=== PATIENT | male | born 1965 | race Hispanic/Latino ===

== ENCOUNTER 2018-03-29 15:29 | Inpatient (IN) | payer OTHER ==
[~2018-03-29] VITALS: Ht 182.9 cm; Wt 99.8 kg
[2018-03-29] MEDS ORDERED: SODIUM CHLORIDE 0.9% 1000ML 1,000 ML IV STA (15:51)
[2018-03-29] MEDS ORDERED: ONDANSETRON HCL 4 MG ORAL DISINTEGRATING TAB PO ONE ×2 (16:00→20:45)
[2018-03-29] MEDS ORDERED: SODIUM CHLORIDE 0.9% 1000ML 1,000 ML ONE (16:03)
[2018-03-29 16:04] LABS: BASOPHILS # (AUTO) 0.1 (0.0-0.1); BASOPHILS % 0.5 % (0.0-1.0); EOSINOPHILS # (AUTO) 0.2 (0.0-0.4); EOSINOPHILS % 2.1 % (0.0-6.0); HEMATOCRIT 49.1 % (38.2-49.6); HEMOGLOBIN 17.6 g/dL (14.0-18.0); LYMPHOCYTES # (AUTO) 1.1 (1.0-3.2); MEAN CORPUSCULAR HGB CONC 35.8 g/dL (31-35); MEAN CORPUSCULAR VOLUME 91.9 fL (81-99); MONOCYTES # (AUTO) 0.8 (0.2-0.8); MONOCYTES % 8.3 % (4.4-11.3); NEUTROPHILS # (AUTO) 7.4 (2.1-6.9); NEUTROPHILS % 77.6 % (38.7-80.0); PLATELET COUNT 226 x10e3/uL (140-360); RED BLOOD COUNT 5.34 x10e6/uL (4.3-5.7); RED CELL DISTRIBUTION WIDTH 12.7 % (11.7-14.4)
[2018-03-29] MEDS ORDERED: MORPHINE SULFATE 2 MG/ML SYR IV STA (16:10)
[2018-03-29] MEDS ORDERED: MORPHINE SULFATE 4 MG/ML SYR IV ONE (16:15)
[2018-03-29 16:20] LABS: ALANINE AMINOTRANSFERASE 23 IU/L (0-55); ALBUMIN 3.7 g/dL (3.5-5.0); ALBUMIN/GLOBULIN RATIO 0.9 (0.8-2.0); ALKALINE PHOSPHATASE 103 IU/L (40-150); ANION GAP 14.5 mmol/L (8-16); BLOOD UREA NITROGEN 7 mg/dL (7-26); BUN/CREATININE RATIO 10 (6-25); CALCIUM 9.5 mg/dL (8.4-10.2); CARBON DIOXIDE 22 mmol/L (22-29); CHLORIDE 108 mmol/L (98-107); CREATININE, SERUM 0.71 mg/dL (0.72-1.25); EST GLOMERULAR FILTRATION RATE > 60 ML/MIN (60-); GLUCOSE 105 mg/dL (74-118); POTASSIUM 3.5 mmol/L (3.5-5.1); SODIUM 141 mmol/L (136-145)
[2018-03-29] MEDS ORDERED: SODIUM CHLORIDE 0.9% 50ML 50 ML ONE (17:34)
[2018-03-29] MEDS ORDERED: IOPAMIDOL 370 MG/ML 200 ML INFUS..BTL INJ ONE (17:34)
[2018-03-29] MEDS ORDERED: MIDAZOLAM HCL 2 MG/2 ML VIAL ONE (17:43)
[2018-03-29] MEDS ORDERED: FENTANYL CITRATE/PF 100MCG/2 ML INJ ONE (17:43)
--- NOTE | 2018-03-29 18:39 | Diagnostic Imaging Report ---
PROCEDURE: CT ABDOMEN AND PELVIS WITH CONTRAST TECHNIQUE: The abdomen and pelvis were scanned utilizing a multidetector helical scanner from the diaphragm to the lesser trochanter after the IV administration of 100 cc of Isovue 370 and the oral administration of 900 mL of water. Coronal and sagittal multiplanar reformations were obtained. COMPARISON: None. INDICATIONS: right lower quad pain FINDINGS: LOWER THORAX: Multiple lung nodules are visualized in both lung bases. For example, subpleural nodule in the left lung base (series 2, image 4) measures 1.1 cm. HEPATOBILIARY: There are multiple indeterminate liver lesions. For example, an ill-defined lesion in segment II of the liver (series 2, image 12) measures 3.4 cm. A more cystic appearing 1.6 cm lesion near the hepatic dome contains surgical clips and may represent a previously treated lesion (series 2, image 12). No biliary ductal dilatation. The gallbladder is absent. SPLEEN: No splenomegaly. PANCREAS: No focal masses or ductal dilatation. ADRENALS: No adrenal nodules. KIDNEYS/URETERS: No hydronephrosis, stones, or solid mass lesions. PELVIC ORGANS/BLADDER: Unremarkable. PERITONEUM / RETROPERITONEUM: No free air or fluid. LYMPH NODES: No lymphadenopathy. VESSELS: The CATHERINE has been surgically ligated. GI TRACT: There are postsurgical changes consistent with prior low anterior resection for colorectal cancer. There is diffuse dilatation of the colon and distal small bowel. The transition point is at the level of the rectal anastomosis. The appendix is normal. BONES AND SOFT TISSUES: Unremarkable. IMPRESSION: 1. Postsurgical changes from low anterior resection for colorectal cancer. 2. There is a large bowel obstruction with transition point at the rectal anastomosis. The findings are highly suspicious for recurrent disease at the anastomosis. 3. Bilateral lung and liver lesions are suspicious for metastatic disease. Dictated by: Chester Holt M.D. on 03/29/2018 at 18:40 Electronically approved by: Chester Holt M.D. on 03/29/2018 at 18:40
[2018-03-29] MEDS ORDERED: SERTRALINE HCL50 MG PO (18:51)
[2018-03-29] MEDS ORDERED: GEMFIBROZIL600 MG PO (18:51)
[2018-03-29] MEDS ORDERED: FISH OIL 1,0001 EAC2 PO (18:51)
[2018-03-29] MEDS ORDERED: VITAMIN D1000 UNI1 PO (18:51)
[2018-03-29] MEDS ORDERED: LOSARTAN POTASS25 MG PO (18:51)
[2018-03-29 18:56] LABS: BILIRUBIN,URINE NEGATIVE (NEGATIVE); CLARITY,URINE SL CLOUDY (CLEAR); COLOR,URINE YELLOW (YELLOW); KETONES,URINE 1+ (NEGATIVE); LEUKOCYTE ESTERASE ,URINE NEGATIVE (NEGATIVE); NITRITE,URINE NEGATIVE (NEGATIVE); PROTEIN,URINE DIPSTICK NEGATIVE (NEGATIVE); URINE UROBILINOGEN 0.2 mg/dL (0.2 - 1)
[2018-03-29] MEDS ORDERED: BENZOCAINE/TETRACAINE/BUTAMBEN AERO SPRAY 56 GM CAN TOP ONE (20:30)
[2018-03-29] MEDS ORDERED: HYDROMORPHONE 1MG/1ML INJ IV ONE (20:39)
[2018-03-29] MEDS ORDERED: LIDOCAINE VISC 2% SOLN 15 ML UDC PO ONE (20:45)
[2018-03-29] MEDS: SODIUM CHLORIDE 0.9% 1000ML 1,000 ML IV SCH ×2 (21:25→23:54)
[2018-03-29] MEDS ORDERED: PROMETHAZINE HCL (IM) 25 MG/ML VIAL IV PRN (21:30)
[2018-03-29] MEDS ORDERED: ONDANSETRON HCL 4 MG ORAL DISINTEGRATING TAB PO PRN (21:30)
[2018-03-29] MEDS ORDERED: PROMETHAZINE 12.5MG/ NACL 0.9% 50 ML IV PRN (21:45)
--- OUTSIDE RECORDS SUMMARY | 2018-03-29 22:17 | XMS REPORT ---
Author Author [facility] Address Unknown Phone Unavailable Care Team Providers Care Shift Supervisor Melting Name Role Phone KALIE JOHNSON Unavailable Unavailable Problems This patient has no known problems. Allergies, Adverse Reactions, Alerts This patient has no known allergies or adverse reactions. Medications This patient has no known medications. Results Test Description Test Time Test Comments Text Results Atomic Results Result Comments CT ABDOMEN/PELVIS W [place] [address] Patient Name: FRANCY ACEVEDO MR #: [id number] : 1965 Age/Sex: 53/M Req #: [id number] Adm Physician: Ordered by: JANICE GAFFNEY PHOTOGRAPHIC LABORATORY SUPERVISOR Report #: [id number] Location: ER Room/Bed: Procedure: [id number] CT/CT ABDOMEN/PELVIS W Exam Date: 03/29/18 Exam Time: 1730 REPORT STATUS: Signed PROCEDURE: CT ABDOMEN AND PELVIS WITH CONTRAST TECHNIQUE: The abdomen and pelvis were scanned utilizing a multidetector helical scanner from the diaphragm to the lesser trochanter after the IV administration of 100 cc of Isovue 370 and the oral administration of 900 mL of water. Coronal and sagittal multiplanar reformations were obtained. COMPARISON: None. INDICATIONS: right lower quad pain FINDINGS: LOWER THORAX: Multiple lung nodules are visualized in both lung bases. For example, subpleural nodule in the left lung base (series 2, image 4) measures 1.1 cm. HEPATOBILIARY: There are multiple indeterminate liver lesions. For example, an ill-defined lesion in segment II of the liver (series 2, image 12) measures 3.4 cm. A more cystic appearing 1.6 cm lesion near the hepatic dome contains surgical clips and may represent a previously treated lesion ( series 2, image 12). No biliary ductal dilatation. The gallbladder is absent. SPLEEN: No splenomegaly. PANCREAS: No focal masses or ductal dilatation. ADRENALS: No adrenal nodules. KIDNEYS/URETERS: No hydronephrosis, stones, or solid mass lesions. PELVIC ORGANS/BLADDER: Unremarkable. PERITONEUM / RETROPERITONEUM: No free air or fluid. LYMPH NODES: No lymphadenopathy. VESSELS: The CATHERINE has been surgically ligated. GI TRACT: There are postsurgical changes consistent with prior low anterior resection for colorectal cancer. There is diffuse dilatation of the colon and distal small bowel. The transition point is at the level of the rectal anastomosis. The appendix is normal. BONES AND SOFT TISSUES: Unremarkable. IMPRESSION: 1. Postsurgical changes from low anterior resection for colorectal cancer. 2. There is a large bowel obstruction with transition point at the rectal anastomosis. The findings are highly suspicious for recurrent disease at the anastomosis. 3. Bilateral lung and liver lesions are suspicious for metastatic disease. Dictated by: Fly Holt M.D. on 03/29/2018 at 18:40 Electronically approved by: Fly Holt M.D. on 03/29/2018 at 18:40 Dictated By: FLY HOLT MD 184 Transcribed By: SHAYE on 03/29/18 184 COPY TO: JANICE GAFFNEY NP
[2018-03-30] VITALS (9 sets, daily range): BP systolic 122–144; BP diastolic 82–90
[2018-03-30 06:26] LABS: BASOPHILS # (AUTO) 0.1 (0.0-0.1); BASOPHILS % 0.4 % (0.0-1.0); EOSINOPHILS % 0.3 % (0.0-6.0); HEMATOCRIT 50.8 % (38.2-49.6); LYMPHOCYTES # (AUTO) 0.7 (1.0-3.2); LYMPHOCYTES % 6.3 % (18.0-39.1); MEAN CORPUSCULAR HEMOGLOBIN 32.7 pg (28-32); MEAN CORPUSCULAR HGB CONC 35.4 g/dL (31-35); MEAN CORPUSCULAR VOLUME 92.4 fL (81-99); MONOCYTES # (AUTO) 0.7 (0.2-0.8); MONOCYTES % 6.5 % (4.4-11.3); NEUTROPHILS # (AUTO) 9.8 (2.1-6.9); NEUTROPHILS % 86.1 % (38.7-80.0); PLATELET COUNT 241 x10e3/uL (140-360); RED CELL DISTRIBUTION WIDTH 12.7 % (11.7-14.4)
[2018-03-30 06:42] LABS: ALANINE AMINOTRANSFERASE 25 IU/L (0-55); ALBUMIN 3.7 g/dL (3.5-5.0); ALBUMIN/GLOBULIN RATIO 0.9 (0.8-2.0); ALKALINE PHOSPHATASE 102 IU/L (40-150); ANION GAP 16.6 mmol/L (8-16); BLOOD UREA NITROGEN 13 mg/dL (7-26); BUN/CREATININE RATIO 16 (6-25); CALCIUM 9.4 mg/dL (8.4-10.2); CARBON DIOXIDE 20 mmol/L (22-29); CHLORIDE 109 mmol/L (98-107); CREATININE, SERUM 0.83 mg/dL (0.72-1.25); EST GLOMERULAR FILTRATION RATE > 60 ML/MIN (60-); GLUCOSE 127 mg/dL (74-118); POTASSIUM 3.6 mmol/L (3.5-5.1); SODIUM 142 mmol/L (136-145)
[2018-03-30] MEDS ORDERED: METOPROLOL TARTRATE INJ 1 MG/ML VIAL IV PRN (08:00)
--- NOTE | 2018-03-30 08:51 | History and Physical ---
PRIMARY CARE PHYSICIAN: Physician at the [facility] in [place], [place]. CHIEF COMPLAINT: Abdominal pain and diarrhea. HISTORY OF PRESENT ILLNESS: This is a 53-year-old man with a history of colon cancer, stage 4, diagnosed in 2012, now developing sharp abdominal pain and loose stools for the past 10 days, now developing diarrhea over the past day, therefore he came to the hospital. Here, he was found to have large-bowel obstruction and multiple nodules in the lungs and liver. He is admitted for further evaluation and management. PAST MEDICAL HISTORY: Colon cancer, stage 4, diagnosed in 2012; hypertension; hypertriglyceridemia. PAST SURGICAL HISTORY: Liver tumor resection x2, cholecystectomy. ALLERGIES: PER ELECTRONIC MEDICAL RECORD. FAMILY/SOCIAL HISTORY: Patient is . He has 2 children. Occasional alcohol. No cigarettes or illicits. MEDICATIONS: Per electronic medical record. REVIEW OF SYSTEMS: Denies any dizziness, chest pain. PHYSICAL EXAMINATION: VITAL SIGNS: Reviewed. GENERAL APPEARANCE: Tired-appearing man resting in bed. HEENT: Anicteric. He has NG tube in place. CARDIOVASCULAR: Normal S1 and S2. LUNGS: Moderate breath sounds. ABDOMEN: Soft, nontender. He has scar in the abdominal wall. EXTREMITIES: No edema or calf tenderness. NEUROLOGICAL: Alert and oriented x3. Moving all extremities. SKIN: Dry. PSYCHIATRIC: Flat affect. LABS: Reviewed. MEDICATIONS: Reviewed. ASSESSMENT AND PLAN: A 53-year-old man. 1. Large-bowel obstruction. Continue nasogastric tube. Follow up with surgical recommendations. 2. Probable bacterial diarrhea. Will treat with Levaquin and Flagyl. We will obtain a stool for Clostridium difficile. 3. Metastatic colon cancer, stage 4 with liver lesion and lung nodules bilaterally. He needs to follow up with his oncologist in [place], [place] at the [facility]. 4. Overweight state. Body mass index 29.8. His glucose is 105. Now, glucose increased to 127. Will obtain hemoglobin A1c. 5. Prophylaxis. Will use Lovenox and pantoprazole. 6. Disposition. Follow up surgical recommendations. Start intravenous antibiotics. Job#: [id number]
[2018-03-30] MEDS: METRONIDAZOLE 500MG/NS 100ML 100 ML IV SCH ×2 (09:34→16:48)
[2018-03-30] MEDS: PANTOPRAZOLE 40 MG 10ML VIAL IV SCH (09:34)
[2018-03-30] MEDS: SODIUM CHLORIDE 0.9% 1000ML 1,000 ML IV SCH ×2 (09:34→13:27)
[2018-03-30] MEDS: LEVOFLOXACIN 750MG/D5W 150ML 150 ML IV SCH (10:59)
[2018-03-30] MEDS: ENOXAPARIN SOD INJ 40 MG/0.4 ML SYR SC SCH (16:49)
--- NOTE | 2018-03-30 19:09 | Consultation ---
DATE OF CONSULTATION: March 30, 2018 SURGICAL CONSULT CHIEF COMPLAINT: Is abdominal distention and diarrhea. HISTORY OF PRESENT ILLNESS: The patient is a 53-year-old male from [place] with a history of stage IV colon cancer diagnosed in 2012 with progressive abdominal distention and pain for the last 2 weeks. He has intermittent diarrhea and constipation. He denies fever nor chills. PAST MEDICAL HISTORY: Positive for stage IV colon cancer with hypertension and hyperlipidemia. SURGICAL HISTORY: Positive for a colon resection in 2013. Liver tumor resection times 2. Cholecystectomy. ALLERGIES: HE HAS NO DRUG ALLERGIES. SOCIAL HABITS: The patient does not smoke, drinks socially. REVIEW OF SYSTEMS: No chest pain or shortness of breath. PHYSICAL EXAMINATION: VITALS: Stable. He is afebrile. GENERAL: He is awake, alert, in mild discomfort. HEENT: Sclerae anicteric. NECK: Supple. LUNGS: Clear. HEART: Regular rate and rhythm. ABDOMEN: Mildly distended with no focal tenderness or mass. EXTREMITIES: Without cyanosis or edema. White cell count is 11, hemoglobin of 18, platelet count 241. Creatinine 0.8. CT of the abdomen showed a large-bowel obstruction with transitional point in the rectal anastomosis, highly suspicious for recurrent tumors. Lung and liver lesions suspicious for metastasis disease. ASSESSMENT: Colonic obstruction most likely secondary to recurrent tumor at the anastomosis. PLAN: Discussed findings which may require diverting colostomy to relieve obstruction. Attendant risks discussed. Thank you for the consultation. Job#: [id number] EV
[2018-03-30] MEDS: MORPHINE SULFATE 2 MG/ML SYR IV PRN (21:25)
[2018-03-31] VITALS (7 sets, daily range): BP systolic 114–140; BP diastolic 79–95
[2018-03-31] MEDS: METRONIDAZOLE 500MG/NS 100ML 100 ML IV SCH ×4 (00:32→23:50)
[2018-03-31] MEDS: SODIUM CHLORIDE 0.9% 1000ML 1,000 ML IV SCH ×3 (07:17→21:27)
[2018-03-31] MEDS: LEVOFLOXACIN 750MG/D5W 150ML 150 ML IV SCH (08:30)
[2018-03-31] MEDS: PANTOPRAZOLE 40 MG 10ML VIAL IV SCH (09:00)
--- NOTE | 2018-03-31 16:44 | Consultation ---
DATE OF CONSULTATION: March 30, 2018 ONCOLOGY CONSULTATION HISTORY OF PRESENT ILLNESS: This is an unfortunate 53-year-old man admitted to [facility] in [place], [place] because of bowel obstruction. Mr. Arita was diagnosed to have colon cancer way back in 2012 and was treated as such at the [facility] in [place], [place]. Patient came to [facility] in [place], [place], Emergency Room because of abdominal pain. He was found to have bowel obstruction and did have radiographic evidence of liver and lung metastases. Patient was admitted to the hospital for supportive care with NG tube suction, NPO, and surgical consultation, which is pending at this time. Patient is nonresponsive, but review of the medical record suggests the patient has a prior history consisting of cholecystectomy as well as liver tumor resections. PAST MEDICAL AND SURGICAL HISTORY: As per history and physical by attending. PHYSICAL EXAMINATION GENERAL: Reveals a middle-aged man who is in no acute distress. VITAL SIGNS: Stable. HEENT: Unremarkable. NECK: Supple. No JVD. CHEST: Lungs clear. HEART: . ABDOMEN: Soft. NEUROLOGICAL: Normal. EXTREMITIES: No cyanosis, clubbing, or edema. ASSESSMENT AND PLAN: Bowel obstruction, most likely due to the metastatic colon cancer until proven otherwise. Surgery consultation is pending at this time. I anticipate the patient most likely has a surgical evaluation with possibly diversion of ileocolostomy. Patient would be a candidate for salvage chemotherapy depending on the treatment plan he had in the past. Thank you very much Dr. Horton for asking me to see Mr. Arita. We will follow him with you. Job#: [id number] ABHILASH
[2018-03-31] MEDS: ENOXAPARIN SOD INJ 40 MG/0.4 ML SYR SC SCH (17:00)
--- NOTE | 2018-03-31 18:49 | Progress Note ---
DATE: March 31, 2018 TIME: 1420 OVERNIGHT: No acute events. REVIEW OF SYSTEMS: The patient denies chest pain or shortness of breath. The patient denies nausea, vomiting, or diarrhea. No dizziness or headache present. PHYSICAL EXAMINATION VITAL SIGNS: T 97, P 69, R 20, BP 130/84, pulse ox 97% on room air. GENERAL APPEARANCE: This is a tired-appearing man resting quietly in bed. HEAD, EYES, EARS, NOSE AND THROAT: Normocephalic. Cheeks flushed. Oral mucosa dry and intact. Positive NGT to right naris to LIWS. CV: S1 and S2 auscultated. LUNGS: Bilateral breath sounds CTA with fair excursion. ABDOMEN: Soft, nontender to light palpation. Not distended. Positive scar noted at bilateral upper quadrants. EXTREMITIES: No edema or calf tenderness. NEUROLOGICAL: Alert and oriented x3. Moves all extremities. SKIN: Dry. PSYCHIATRIC: Flat affect. LABS: Counts with WBC at 11.39, hemoglobin 18, hematocrit 50.8, platelet count 241. Chemistries reviewed. MEDICATIONS 1. Protonix 40 mg IV daily. 2. Levofloxacin q.24 h. IV. 3. Flagyl q.8 h. IV. 4. NS at 125 IV. 5. P.R.N. morphine sulfate 4 mg q.4 h. p.r.n. 6. Lovenox 40 mg daily at 5 p.m. subcutaneous. 7. P.R.N. IV metoprolol. 8. P.R.N. Zofran 4 mg q.6. ASSESSMENT AND PLAN 1. Large-bowel obstruction. NG tube to LIWS. Surgical consult and note reviewed. Pending intervention with GI EGD and sigmoidoscopy this day. 2. Probable bacterial diarrhea. IV Levaquin and Flagyl. Stool C. diff negative. 3. Metastatic colon cancer, stage IV with liver lesion and lung nodules bilaterally per note review. The patient lives in [place], [place], where his PCP and oncologist provide care. He will need to follow up as an outpatient with that service. 4. Overweight state. BMI is 2.8, glucose 105. On admission, hemoglobin A1c was 4.7. Continue to monitor. 5. Prophylaxis: Lovenox and Protonix. 6. Disposition: IV ABX pending GI findings. GI procedure pending this very day as discussed with the patient and medical staff. Surgical note review indicates patient will require diverting colostomy to relieve obstruction. Intervention pending. Dictated by Rustam Mccabe NP. Job#: [id number]
--- NOTE | 2018-03-31 20:39 | Operative Report ---
DATE OF PROCEDURE: March 31, 2018 REFERRING PHYSICIANS: Dr. eDlfino Ware and Dr. Manoj Thomas PROCEDURE PERFORMED: Colonoscopy. INDICATIONS FOR PROCEDURE: Patient with history of stage 4 colon cancer, ? recurrence at the anastomosis per CT scan. MEDICATION: Patient was done under MAC. Please see anesthesiologist note. PROCEDURE IN DETAIL: With the patient in left lateral decubitus position, flexible fiberoptic Olympus pediatric colonoscope was inserted into the rectum with ease, and at approximately 8 cm from the anal verge, the anastomosis was encountered with excessive overgrowth of tissue and some element of edema, and the lumen was totally obstructed. Anastomotic site was traversed with gentle persistent pressure with the scope, which was advanced all the way to the cecum. Prep overall was poor as patient was prepped with enemas only. The scope was then withdrawn slowly. Whatever was visualized in the mucosa overlying the ascending, transverse, descending, and sigmoid grossly appeared to be within normal limits. Biopsies were obtained from the anastomosis. The scope was subsequently withdrawn. Patient tolerated the procedure well. IMPRESSION: 1. Obvious recurrence of cancer at rectal anastomosis with obstruction, biopsies obtained. 2. Poor prep. PLAN: Follow up histology. Continue NG section. Will discuss with Dr. Thomas. Job#: [id number] cc:MD MANOJ CARVALHO MD
[2018-03-31] MEDS: MORPHINE SULFATE 2 MG/ML SYR IV PRN (23:58)
[2018-04-01] VITALS: BP 130/85
[2018-04-01] MEDS: SODIUM CHLORIDE 0.9% 1000ML 1,000 ML IV SCH ×5 (00:52→22:45)
[2018-04-01 04:00] VITALS: BP 120/77
[2018-04-01] MEDS: METRONIDAZOLE 500MG/NS 100ML 100 ML IV SCH ×3 (08:00→23:34)
[2018-04-01 08:22] VITALS: BP 126/85
[2018-04-01] MEDS: LEVOFLOXACIN 750MG/D5W 150ML 150 ML IV SCH (08:30)
[2018-04-01] MEDS: PANTOPRAZOLE 40 MG 10ML VIAL IV SCH (09:00)
[2018-04-01 12:49] VITALS: BP 120/80
--- NOTE | 2018-04-01 13:55 | Progress Note ---
DATE: April 01, 2018 TIME: 12:45 p.m. OVERNIGHT: No acute events. Patient underwent GI evaluation yesterday evening. REVIEW OF SYSTEMS: The patient was found sleeping and had some difficulty arousing status post morphine administration. Nursing staff reports no other complaint besides headache. PHYSICAL EXAMINATION VITAL SIGNS: T 97.5, P 71, respirations 20, BP 120/80, pulse ox 97% on room air. GENERAL: This is a tired-appearing man resting comfortably in bed. HEAD, EYES, EARS, NOSE AND THROAT: Normocephalic. Cheeks flushed. Oral mucosa moist and intact. NG tube at right naris to low intermittent wall suction. CARDIOVASCULAR: S1 and S2 auscultated without clicks, murmurs or rubs. LUNGS: Bilateral breath sounds clear to auscultation with good excursion. ABDOMEN: Soft and nontender to light palpation. Not distended. Scar noted horizontal across bilateral upper quadrants with vertical scar in epigastric region. EXTREMITIES: No edema or calf tenderness. NEUROLOGICAL: Alert and oriented x3. Moves all extremities. Dorsiflexion against force. SKIN: Dry. PSYCHIATRIC: Flat affect when awakened. LABS: WBC, H and H and platelets prior values reviewed. Chemistries reviewed. MEDICATIONS 1. Normal saline at 125 an hour. 2. Protonix 40 mg IV daily. 3. Levaquin q.24 h. IV. 4. Flagyl q.8 h. IV. 5. P.R.N. morphine q.4 h. as needed for pain. 6. Lovenox 40 mg daily at 1700. 7. Metoprolol 5 mg q.4 h. p.r.n. 8. Zofran 4 mg q.6. ASSESSMENT AND PLAN 1. Large-bowel obstruction. NG tube to low intermittent wall suction. Surgical consult and note reviewed today. GI EGD and sigmoidoscopy procedures performed last night. GI and surgery are consulting options. 2. Diarrhea, probably bacterial. IV Levaquin and Flagyl. C. diff negative. 3. Metastatic colon cancer, stage IV with liver lesion and lung nodules bilaterally per chart review. The patient lives in [place], [place], where his PCP and oncologist provide care. He will need to follow up as an outpatient with those services. 4. Overweight state. BMI is 29.8, glucose 105. On admission, hemoglobin A1c was well controlled at 4.7. Continue to monitor. 5. Prophylaxis: Lovenox and Protonix. 6. Disposition: IV antibiotics pending GI and surgical plan. Discussed with nursing staff at bedside. IV medications per nursing for complaint of headache. Continue with multidisciplinary care. Dictated by Rustam Mccabe NP. Job#: [id number]
[2018-04-01] MEDS ORDERED: HYOSCYAMINE SULFATE 0.5 MG/ML AMP ONE (14:27)
[2018-04-01] MEDS ORDERED: PROPOFOL IV EMULSION 10 MG/ML 50 ML VIAL ONE (14:27)
[2018-04-01] MEDS ORDERED: LIDOCAINE HCL 2% LOCAL INJ 5 ML SDV VIAL INJ ONE (14:27)
[2018-04-01 16:19] VITALS: BP 134/87
[2018-04-01] MEDS: ENOXAPARIN SOD INJ 40 MG/0.4 ML SYR SC SCH (16:26)
[2018-04-01 20:00] VITALS: BP 120/78
[2018-04-02] VITALS (7 sets, daily range): BP systolic 116–150; BP diastolic 79–94
[2018-04-02] MEDS: SODIUM CHLORIDE 0.9% 1000ML 1,000 ML IV SCH ×3 (04:52→20:10)
[2018-04-02 06:48] LABS: ANION GAP 12.3 mmol/L (8-16); BLOOD UREA NITROGEN 5 mg/dL (7-26); BUN/CREATININE RATIO 8 (6-25); CARBON DIOXIDE 24 mmol/L (22-29); CHLORIDE 110 mmol/L (98-107); CREATININE, SERUM 0.65 mg/dL (0.72-1.25); EST GLOMERULAR FILTRATION RATE > 60 ML/MIN (60-); GLUCOSE 85 mg/dL (74-118); POTASSIUM 3.3 mmol/L (3.5-5.1); SODIUM 143 mmol/L (136-145)
[2018-04-02] MEDS: METRONIDAZOLE 500MG/NS 100ML 100 ML IV SCH ×2 (08:00→16:00)
[2018-04-02] MEDS: PANTOPRAZOLE 40 MG 10ML VIAL IV SCH (08:11)
--- NOTE | 2018-04-02 08:11 | Progress Note ---
DATE: April 02, 2018 TIME: 7:43 a.m. OVERNIGHT: No events. REVIEW OF SYSTEMS: Denies any dizziness. PHYSICAL EXAMINATION VITAL SIGNS: Reviewed. GENERAL: A tired-appearing man resting in bed. HEENT: Anicteric. CARDIOVASCULAR: Normal S1 and S2. LUNGS: Moderate breath sounds. ABDOMEN: Soft, nontender and nondistended. EXTREMITIES: No edema. SKIN: Dry. PSYCHIATRIC: Flat affect. LABS: Reviewed. MEDICATIONS: Reviewed. ASSESSMENT: A 53-year-old man with: 1. Large bowel obstruction. 2. Peripheral arterial disease. 3. Metastatic colon cancer, stage IV with liver lesion and lung nodules. 4. Overweight state. 5. Hypokalemia. PLAN 1. Hemoglobin A1c 4.7. 2. C. diff testing negative. 3. Continue Flagyl and Levaquin. 4. Stent placement versus balloon dilatation for the stricture at the anastomosis site. Follow up GI recommendations. 5. Continue blood pressure control. 6. Replace potassium. Job#: [id number] SYED
[2018-04-02] MEDS ORDERED: POTASSIUM CHLORIDE 20MEQ/100ML 100 ML IV ONE (08:15)
[2018-04-02] MEDS ORDERED: BISMUTH SUBSALICYLATE 262 MG/15 ML 8OZ BTL PO PRN (10:00)
[2018-04-02] MEDS: LEVOFLOXACIN 750MG/D5W 150ML 150 ML IV SCH (11:04)
[2018-04-02] MEDS: SUCRALFATE 1 GM/10 ML SUSP NG SCH ×3 (13:00→20:10)
[2018-04-02] MEDS ORDERED: RISPERIDONE0.5 MG PO (14:39)
[2018-04-02] MEDS ORDERED: ULTRAM50 MG PO (14:39)
[2018-04-02] MEDS ORDERED: TAMSULOSIN HCL0.4 MG PO (14:39)
[2018-04-02] MEDS ORDERED: diclofenac PO (14:39)
--- NOTE | 2018-04-02 16:15 | Operative Report ---
DATE OF PROCEDURE: April 02, 2018 REFERRING PHYSICIAN: Dr. Jarvis Kiser. PROCEDURE PERFORMED: Flexible sigmoidoscopy with balloon dilatation of rectal anastomosis with tumor recurrence with obstruction. INDICATIONS FOR PROCEDURE: History of stage IV colon cancer with recurrence at anastomosis with obstruction. MEDICATION: Patient was done under MAC. Please see anesthesiologist's note. PROCEDURE: With patient in the left lateral decubitus position, the flexible fiberoptic Olympus colonoscope was inserted into the rectum with ease. The distal end of the tumor was noted at approximately 8 cm from the anal verge, and the proximal end was at 15 cm. It was dilated to size 18 mm per TTS balloon dilators. The scope was subsequently withdrawn. Patient tolerated the procedure well. IMPRESSION: Rectal anastomosis with obvious recurrence of tumor with obstruction, dilated to 18 mm per TTS balloon dilators. PLAN: For stent insertion in a.m. Job#: [id number] EV cc:JARVIS KISER MD
[2018-04-02] MEDS: ENOXAPARIN SOD INJ 40 MG/0.4 ML SYR SC SCH (17:00)
[2018-04-02] MEDS ORDERED: MIDAZOLAM HCL 2 MG/2 ML VIAL ONE (17:46)
[2018-04-02] MEDS ORDERED: FENTANYL CITRATE/PF 100MCG/2 ML INJ ONE (17:46)
[2018-04-02] MEDS ORDERED: PROPOFOL IV EMULSION 10 MG/ML 50 ML VIAL ONE (20:21)
[2018-04-02] MEDS ORDERED: LIDOCAINE HCL 2% LOCAL INJ 5 ML SDV VIAL INJ ONE (20:21)
[2018-04-03] VITALS (7 sets, daily range): BP systolic 123–146; BP diastolic 66–95
[2018-04-03] MEDS: METRONIDAZOLE 500MG/NS 100ML 100 ML IV SCH ×3 (00:50→16:15)
[2018-04-03] MEDS: SODIUM CHLORIDE 0.9% 1000ML 1,000 ML IV SCH ×3 (06:33→21:42)
[2018-04-03] MEDS: SUCRALFATE 1 GM/10 ML SUSP NG SCH ×4 (08:20→21:41)
[2018-04-03] MEDS: PANTOPRAZOLE 40 MG 10ML VIAL IV SCH (08:20)
[2018-04-03] MEDS: LEVOFLOXACIN 750MG/D5W 150ML 150 ML IV SCH (10:05)
--- NOTE | 2018-04-03 10:41 | Progress Note ---
DATE: April 03, 2018 TIME: 7:30 a.m. OVERNIGHT: He underwent flexible sigmoidoscopy. REVIEW OF SYSTEMS: Denies any dizziness. PHYSICAL EXAMINATION VITAL SIGNS: Reviewed. GENERAL: A tired-appearing man resting in bed. HEENT: Anicteric. CARDIOVASCULAR: Normal S1 and S2. LUNGS: Moderate breath sounds. ABDOMEN: Soft and nondistended. Has a scar. EXTREMITIES: No edema. SKIN: Dry. PSYCHIATRIC: Flat affect. LABS: Reviewed. MEDICATIONS: Reviewed. ASSESSMENT: A 53-year-old man with: 1. Large bowel obstruction: Status post flexible sigmoidoscopy with balloon dilatation of the rectal anastomosis with tumor recurrence with obstruction. 2. Clostridium difficile testing negative. 3. Peripheral arterial disease. 4. Metastatic colon cancer with liver and lung lesions. 5. Overweight state. 6. Hypokalemia. PLAN 1. Hemoglobin A1c 4.7. 2. Status post flexible sigmoidoscopy with balloon dilatation: Plan for stent today. 3. Continue Flagyl. 4. Continue pain control. Job#: [id number] SYED
[2018-04-03] MEDS: ENOXAPARIN SOD INJ 40 MG/0.4 ML SYR SC SCH (17:00)
[2018-04-03] MEDS ORDERED: HYOSCYAMINE SULFATE 0.5 MG/ML AMP ONE (17:15)
[2018-04-03] MEDS ORDERED: TRAMADOL HCL 50 MG TAB PO PRN (18:00)
[2018-04-03] MEDS: SERTRALINE HCL 50 MG TAB PO SCH (21:41)
[2018-04-03] MEDS: RISPERIDONE 0.5 MG TAB PO SCH (21:41)
[2018-04-04] VITALS (10 sets, daily range): BP systolic 105–127; BP diastolic 68–87
[2018-04-04] MEDS: SODIUM CHLORIDE 0.9% 1000ML 1,000 ML IV SCH ×3 (05:27→21:27)
[2018-04-04 06:49] LABS: BASOPHILS # (AUTO) 0.1 (0.0-0.1); BASOPHILS % 0.7 % (0.0-1.0); EOSINOPHILS # (AUTO) 0.3 (0.0-0.4); EOSINOPHILS % 4.6 % (0.0-6.0); HEMOGLOBIN 16.4 g/dL (14.0-18.0); LYMPHOCYTES # (AUTO) 1.1 (1.0-3.2); LYMPHOCYTES % 14.6 % (18.0-39.1); MEAN CORPUSCULAR HEMOGLOBIN 32.9 pg (28-32); MEAN CORPUSCULAR HGB CONC 36.4 g/dL (31-35); MEAN CORPUSCULAR VOLUME 90.2 fL (81-99); MONOCYTES # (AUTO) 0.7 (0.2-0.8); MONOCYTES % 9.1 % (4.4-11.3); NEUTROPHILS # (AUTO) 5.2 (2.1-6.9); NEUTROPHILS % 70.6 % (38.7-80.0); PLATELET COUNT 209 x10e3/uL (140-360); RED BLOOD COUNT 4.99 x10e6/uL (4.3-5.7); RED CELL DISTRIBUTION WIDTH 12.5 % (11.7-14.4)
[2018-04-04 07:17] LABS: ANION GAP 12.8 mmol/L (8-16); BLOOD UREA NITROGEN < 5 mg/dL (7-26); CALCIUM 8.1 mg/dL (8.4-10.2); CARBON DIOXIDE 23 mmol/L (22-29); CHLORIDE 111 mmol/L (98-107); CREATININE, SERUM 0.72 mg/dL (0.72-1.25); EST GLOMERULAR FILTRATION RATE > 60 ML/MIN (60-); GLUCOSE 86 mg/dL (74-118); SODIUM 144 mmol/L (136-145)
[2018-04-04 07:28] LABS: BUN/CREATININE RATIO 7 (6-25)
[2018-04-04 07:29] LABS: POTASSIUM 2.8 mmol/L (3.5-5.1)
[2018-04-04] MEDS: GEMFIBROZIL 600 MG TAB PO SCH ×2 (07:30→13:33)
--- NOTE | 2018-04-04 07:31 | Progress Note ---
DATE: April 04, 2018 TIME: 7:05 a.m. OVERNIGHT: No events. REVIEW OF SYSTEMS: Denies any dizziness. PHYSICAL EXAMINATION VITAL SIGNS: Reviewed. GENERAL: A tired-appearing man resting in bed. HEENT: Anicteric. CARDIOVASCULAR: Normal S1 and S2. LUNGS: Moderate breath sounds. ABDOMEN: Soft and nondistended. He has a midline scar. EXTREMITIES: No edema. SKIN: Dry. PSYCHIATRIC: Flat affect. LABS: Reviewed. MEDICATIONS: Reviewed. ASSESSMENT: A 53-year-old man. 1. Large-bowel obstruction, status post flexible sigmoidoscopy with balloon dilatation of the rectal anastomosis with tumor recurrence and obstruction. 2. Clostridium difficile testing negative. 3. Peripheral arterial disease. 4. Metastatic colon cancer with liver and lung lesions. 5. Overweight state. 6. Hypokalemia. PLAN 1. Hemoglobin A1c 4.7. 2. Stent to the colon is still pending. 3. Continue Levaquin and Flagyl. 4. Continue pain control. Job#: [id number]
[2018-04-04] MEDS ORDERED: POTASSIUM CHLORIDE 20MEQ/100ML 300 ML IV ONE (07:45)
[2018-04-04] MEDS: METRONIDAZOLE 500MG/NS 100ML 100 ML IV SCH ×3 (07:59→16:19)
[2018-04-04] MEDS: SUCRALFATE 1 GM/10 ML SUSP NG SCH ×4 (09:00→20:23)
[2018-04-04] MEDS: PANTOPRAZOLE 40 MG 10ML VIAL IV SCH (09:24)
[2018-04-04] MEDS ORDERED: DIATRIZOATE MEGL/DIATRIZOA SOD 120 ML BTL PO ONE (10:15)
[2018-04-04] MEDS: LOSARTAN POTASSIUM 25 MG TAB PO SCH (13:34)
[2018-04-04] MEDS: TAMSULOSIN HCL 0.4 MG CAP PO SCH (13:34)
--- NOTE | 2018-04-04 16:36 | Operative Report ---
DATE OF PROCEDURE: April 04, 2018 REFERRING PHYSICIAN: Dr. Jarvis Kiser. PROCEDURE PERFORMED: Flexible sigmoidoscopy and deployment of a colonic stent. INDICATION FOR PROCEDURE: Patient with a history of stage IV colon cancer with recurrence and obstruction at the rectal anastomosis, in for stent placement. MEDICATION: Patient was done under MAC. Please see anesthesiologist's note. PROCEDURE: With the patient in the supine position, the flexible fiberoptic Olympus colonoscope was inserted into the rectum with ease and then successfully traversed the tumor to beyond the proximal end. A size 25 mm x 120 mm WallFlex colonic stent was then deployed in the usual fashion under fluoroscopic guidance with the distal end of the stent approximately 1 cm distal to the distal end of the tumor. The scope was subsequently withdrawn. Patient tolerated the procedure well. IMPRESSION: WallFlex colonic stent 25 mm x 120 mm was deployed under fluoroscopic guidance with distal end approximately 1 cm below the distal edge of the tumor. Patient tolerated procedure well. PLAN: Initiate full-liquid diet. Job#: [id number] EV cc:JARVIS KISER MD
[2018-04-04] MEDS ORDERED: PROPOFOL IV EMULSION 10 MG/ML 20 ML VIAL ONE (17:19)
[2018-04-04] MEDS ORDERED: LIDOCAINE HCL 2% LOCAL INJ 5 ML SDV VIAL INJ ONE (17:19)
[2018-04-04] MEDS: ENOXAPARIN SOD INJ 40 MG/0.4 ML SYR SC SCH (17:27)
[2018-04-04] MEDS ORDERED: MIDAZOLAM HCL 2 MG/2 ML VIAL ONE (17:55)
[2018-04-04] MEDS ORDERED: FENTANYL CITRATE/PF 100MCG/2 ML INJ ONE (17:55)
[2018-04-04] MEDS ORDERED: LEVOFLOXACIN 750MG/D5W 150ML 150 ML IV SCH (20:00)
[2018-04-04] MEDS: RISPERIDONE 0.5 MG TAB PO SCH (20:23)
[2018-04-04] MEDS: SERTRALINE HCL 50 MG TAB PO SCH (20:23)
[2018-04-05] MEDS: METRONIDAZOLE 500MG/NS 100ML 100 ML IV SCH ×2 (00:30→08:06)
[2018-04-05 05:00] VITALS: BP 116/72
[2018-04-05] MEDS ORDERED: SUCRALFATE1 G/10 ML NG (07:05)
[2018-04-05] MEDS ORDERED: FLAGYL500 MG PO (07:05)
[2018-04-05] MEDS ORDERED: LEVAQUIN500 MG PO (07:05)
[2018-04-05] MEDS ORDERED: PANTOPRAZOLE SO40 MG PO (07:05)
[2018-04-05 07:35] VITALS: BP 124/75
[2018-04-05 07:38] VITALS: BP 124/75
[2018-04-05] MEDS: GEMFIBROZIL 600 MG TAB PO SCH (08:06)
[2018-04-05 08:40] LABS: HEMOGLOBIN 16.8 g/dL (14.0-18.0)
[2018-04-05 08:50] LABS: PHOSPHORUS 3.1 MG/DL (2.3-4.7); POTASSIUM 3.2 mmol/L (3.5-5.1)
[2018-04-05 09:19] LABS: MAGNESIUM 0.8 MG/DL (1.3-2.1)
[2018-04-05] MEDS: LOSARTAN POTASSIUM 25 MG TAB PO SCH (09:32)
[2018-04-05] MEDS: PANTOPRAZOLE 40 MG 10ML VIAL IV SCH (09:32)
[2018-04-05] MEDS: SUCRALFATE 1 GM/10 ML SUSP NG SCH (09:32)
[2018-04-05] MEDS: TAMSULOSIN HCL 0.4 MG CAP PO SCH (09:32)
--- NOTE | 2018-04-05 10:08 | Consultation ---
DATE OF CONSULTATION: March 30, 2018 Mr. Arita is a 53-year-old white male who has been referred to me for evaluation of metastatic colon cancer. History goes back to 2012 when he had colon cancer. The patient is being treated at [place], [place]. The patient also is being treated when he comes here for his workup by Dr. Johnson, a medical oncologist at [place] with [facility]. The patient presents with bowel obstruction and fecal vomiting. Subsequently, a nasogastric tube. Consultation to Dr. Thomas, a surgeon, was obtained. SOCIAL HISTORY: Noncontributory. FAMILY HISTORY: Noncontributory. ALLERGIES: REPORTED NONE. MEDICATIONS: At this time: 1. Promethazine. 2. Levaquin. 3. Sodium chloride. 4. Morphine. 5. Ondansetron. 6. Metoprolol. 7. Lovenox. 8. Protonix. REVIEW OF SYSTEMS HEENT: Normal. CARDIAC: History of hypertension. RESPIRATORY: Lung metastases. GI: Colon cancer since 2012. Liver metastases. Lung metastases. : Normal. MUSCULOSKELETAL: Normal. SKIN AND BREASTS: Normal. NEUROENDOCRINE: Normal. PHYSICAL EXAMINATION GENERAL: A moderately built male. Has a nasogastric tube, which is suctioning fecal material. No adenopathy. HEART: Within normal limits. LUNGS: Clear. ABDOMEN: Obese. There is no hepatosplenomegaly even though the CT scan he has liver metastases. RECTAL: Deferred. CENTRAL NERVOUS SYSTEM: Essentially normal. EXTREMITIES: Essentially normal. LABORATORY DATA: Shows a hemoglobin of 18, hematocrit 50.8, white count 11,300, and platelets 241,000. Sodium 142, potassium 3.6, chloride 109, CO2 20, BUN 13, creatinine 0.8, glucose 127. Bilirubin 1.4, SGOT 25, SGPT 25, alkaline phosphatase 102. The CT scan of the abdomen shows liver metastases and lung metastases. IMPRESSION 1. History of colon cancer since 2012. 2. Large-bowel obstruction by computerized tomography scan. 3. Liver metastases. 4. Lung metastases. 5. Gastroesophageal reflux syndrome versus dehydration. 6. 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 PLAN, COMMENTS AND SUGGESTIONS: Suggest surgical consult. Suggest GI consult. Best supportive care. Once stable, the patient should be discharged to his medical oncologist in [place]. I explained his records to Dr. Johnson who had called me personally, his medical oncologist at [place]. Job#: [id number] SYED
[2018-04-05 11:29] VITALS: BP 114/59
[2018-04-05] MEDS ORDERED: MAGNESIUM SULFATE 2GM/50ML 50 ML IV ONE (11:30)
[2018-04-05] MEDS ORDERED: SUCRALFATE 1 GM/10 ML SUSP NG SCH (11:30)
[2018-04-05] MEDS ORDERED: POTASSIUM CHLORIDE 20 MEQ TAB CR PO NR (11:30)
[2018-04-05 15:43] VITALS: BP 100/61
[2018-04-06] MEDS ORDERED: LOSARTAN POTASSIUM 100 MG TAB PO SCH (09:00)
--- NOTE | 2018-04-07 08:28 | Discharge Summary ---
PRINCIPAL DIAGNOSES 1. Large-bowel obstruction, status post flexible sigmoidoscopy with balloon dilatation and rectal anastomosis of a tumor recurrence and obstruction. 2. Clostridium difficile testing negative. 3. Peripheral arterial disease. 4. Metastatic colon cancer with liver and lung metastases. 5. Overweight state. 6. Hypokalemia. SECONDARY DIAGNOSIS: Metastatic colon cancer. CHIEF COMPLAINT: Abdominal pain. HISTORY OF PRESENT ILLNESS: A 53-year-old man who developed abdominal pain. Refer to the H and P for further details. HOSPITAL COURSE: The patient developed abdominal pain. He does have a history of metastatic colon cancer. He underwent flexible sigmoidoscopy, which showed he had a large-bowel obstruction. He underwent flexible sigmoidoscopy with balloon dilatation of the rectal anastomosis with tumor recurrence and obstruction. Stent was placed at the site. He had C. difficile testing negative. Peripheral arterial disease was present. Metastatic colon cancer with liver and lung mets and overweight state. The patient had hypokalemia, which was replaced. Hemoglobin A1c screening was 4.7. The patient did well and subsequently transitioned home with antibiotics of Levaquin and Flagyl. DISCHARGE MEDICATIONS: Per electronic medical record. FOLLOWUP 1. Primary care doctor in 1 week. 2. Oncology in 1 week. CONDITION ON DISCHARGE: Stable. PROGNOSIS: Fair to poor. JARVIS KISER MD Job#: [id number] [place]
== END 2018-04-05 16:08 | disposition home or self-care (01) | DRG 333 ==
LOC: ER 15:29 → ERHOLD 22:14 → MED/SURG3 22:51
PROVIDERS: ADMIT Internal Medicine; ATTEND Internal Medicine
PROC: 0DBP8ZX Excision of Rectum, Via Natural or Artificial Opening Endoscopic, Diagnostic (ICD-10-PCS; 2018-03-31)
PROC: 0DBP4ZZ Excision of Rectum, Percutaneous Endoscopic Approach (ICD-10-PCS; principal; 2018-03-31 16:00)
PROC: 0D7P8ZZ Dilation of Rectum, Via Natural or Artificial Opening Endoscopic (ICD-10-PCS; 2018-04-02)
DX: C19 Malignant neoplasm of rectosigmoid junction (principal); C78.00 Secondary malignant neoplasm of unspecified lung; C78.7 Secondary malignant neoplasm of liver and intrahepatic bile duct; K56.699 Other intestinal obstruction unspecified as to partial versus complete obstruction; I73.9 Peripheral vascular disease, unspecified; I10 Essential (primary) hypertension; E78.1 Pure hyperglyceridemia; E66.9 Obesity, unspecified; Z68.29 Body mass index [BMI] 29.0-29.9, adult; E87.6 Hypokalemia; K21.9 Gastro-esophageal reflux disease without esophagitis; R77.1 Abnormality of globulin; E78.5 Hyperlipidemia, unspecified
CPT/HCPCS: 36415; 43450; 45330; 45380; 74177; 76000; 80048; 80053; 81001; 83036; 83735; 84100; 84132; 85014; 85018; 85025; 87493; 88305; 93005; 96361; 96367; 96376; 99284; J1170; J1650; J1980; J2001; J2250; J2270; J2550; J3480; J7030; Q9963; Q9967